=== PATIENT | female | born 1945 | race Caucasian/White ===

== ENCOUNTER 2017-02-01 07:10 | Emergency (ER) | payer MEDICARE ==
[~2017-02-01] VITALS: Ht 162.6 cm; Wt 77.5 kg
[2017-02-01 07:13] VITALS: BP 160/87
[2017-02-01] MEDS ORDERED: FAMOTIDINE 20 MG TABLET PO ONE (08:00)
[2017-02-01] MEDS ORDERED: FAMOTIDINE 20 MG TABLET ONE (08:23)
[2017-02-01 08:42] LABS: BLOOD UREA NITROGEN 21 mg/dL (7-18)
== END 2017-02-01 09:19 | disposition home or self-care (01) ==
LOC: ED 07:41
DX: L50.9 Urticaria, unspecified (principal); I10 Essential (primary) hypertension
CPT/HCPCS: 36415; 80048; 82040; 85025; 93005; 99285; J7512; Q0177

== ENCOUNTER 2020-02-06 13:37 | Emergency (ER) | payer MEDICARE, OTHER ==
[~2020-02-06] VITALS: Ht 160 cm; Wt 68.0 kg
--- NOTE | 2020-02-06 13:57 | NUR ---
[facility]. REPORT RECEIVED FROM EMS. PT C/O LEFT KNEE PAIN/ITCHY AND NAUSEA FOR A FEW DAYS. DENIES ABD PAIN/D. PT STATED "MY RIGHT KNEE HURTS WELL BUT LEFT KNEE IS MUCH WORSE." PT'S AOX4. RESPS EVEN AND UNLABORED. BP/SPO2 MONITORS IN PLACE. CALL LIGHT WITHIN REACH.
[2020-02-06] MEDS ORDERED: ONDANSETRON ODT 4 MG PO ONE (14:30)
[2020-02-06] MEDS ORDERED: hydrOXyzine 10MG TABLET PO ONE (14:30)
[2020-02-06] MEDS ORDERED: ONDANSETRON ODT 4 MG ONE (14:33)
[2020-02-06] MEDS ORDERED: hydrOXyzine 10MG TABLET ONE (14:33)
--- NOTE | 2020-02-06 14:37 | NUR ---
PT MEDICATED PER [facility]AR. PT TOLERATED WELL.
--- NOTE | 2020-02-06 14:38 | NUR ---
US AT BEDSIDE AT THIS TIME.
[2020-02-06 14:51] LABS: BASOPHILS # (AUTO) 0.04 x10^3/uL (0-0.1); BASOPHILS % (AUTO) 1 % (0-1); EOSINOPHILS # (AUTO) 0.52 x10^3/uL (0-0.4); EOSINOPHILS % (AUTO) 11 % (1-7); LYMPHOCYTES # (AUTO) 1.43 x10^3/uL (1-3.4); LYMPHOCYTES % (AUTO) 30 % (22-44); MD NO; MEAN CORPUSCULAR HEMOGLOBIN 30.8 pg (27.0-34.8); MEAN CORPUSCULAR HGB CONC 33.2 g/dL (32.4-35.8); MEAN CORPUSCULAR VOLUME 92.8 fL (80-100); MEAN PLATELET VOLUME 10.2 fL (7.4-10.4); MONOCYTES # (AUTO) 0.36 x10^3/uL (0.2-0.8); MONOCYTES % (AUTO) 8 % (2-9); NEUTROPHILS # (AUTO) 2.47 x10^3/uL (1.8-6.8); NEUTROPHILS % (AUTO) 51 % (42-75); PLATELET COUNT 178 x10^3/uL (130-400); RED BLOOD COUNT 4.68 x10^6/uL (3.82-5.3)
[2020-02-06 15:03] LABS: ALBUMIN 3.1 g/dL (3.4-5.0); ANION GAP 6 mmol/L (5-15); CALCIUM 8.5 mg/dL (8.5-10.1); CHLORIDE 111 mmol/L (98-107)
[2020-02-06 15:07] LABS: ALANINE AMINOTRANSFERASE 13 U/L (12-78); ALKALINE PHOSPHATASE 86 U/L (45-117); BILIRUBIN,TOTAL 0.5 mg/dL (0.2-1.0); CREATININE 0.73 mg/dL (0.55-1.02); TOTAL PROTEIN 6.5 g/dL (6.4-8.2)
--- NOTE | 2020-02-06 15:55 | NUR ---
pt resting in [facility]. pt's aox4. resps even and unlabored. warm blanket provided per request at this time.
[2020-02-06 16:17] VITALS: BP 138/66
== END 2020-02-06 16:19 | disposition home or self-care (01) ==
LOC: ED 14:24
DX: L50.1 Idiopathic urticaria (principal); L20.9 Atopic dermatitis, unspecified; M79.605 Pain in left leg; I10 Essential (primary) hypertension; M19.90 Unspecified osteoarthritis, unspecified site
CPT/HCPCS: 36415; 80053; 85025; 93971; 99284; Q0162